=== PATIENT | male | born 1995 | race Caucasian/White ===

== ENCOUNTER 2018-04-10 07:06 | Emergency (ER) | payer SELFPAY ==
[2018-04-10 07:26] VITALS: BP 151/88
[2018-04-10] MEDS ORDERED: Alum Hydrox/Mag Hydrox/Simeth 15 ML, Lidocaine 2% 15 ML PO ONE ×2 (07:37)
--- NOTE | 2018-04-10 08:17 | EDM.PDOC ---
ED HPI GENERAL MEDICAL PROBLEM - General Chief Complaint: ENT Problem Stated Complaint: SORE THORAT AND HEADACHE Time Seen by Provider: 04/10/18 07:30 Source of Information: Reports: Patient History Limitations: Reports: No Limitations - History of Present Illness INITIAL COMMENTS - FREE TEXT/NARRATIVE: 23-year-old male with a sore throat, earaches and cough for the past 48 hours. He is unsure if he's been running fevers. Developing a cough. Duration: Day(s): (2 days) Worsens with: Reports: Other (Swallowing is very painful) Associated Symptoms: Reports: Cough, Fever/Chills, Malaise. Denies: Shortness of Breath - Related Data Allergies Allergy/AdvReac Type Severity Reaction Status Date / Time No Known Allergies Allergy Verified 04/10/18 07:24 Home Meds: Home Meds NK [No Known Home Meds] 08/02/16 [History] Past Medical History Musculoskeletal History: Reports: Fracture Dermatologic History: Reports: Other (See Below) Other Dermatologic History: dry skin - Infectious Disease History Infectious Disease History: Reports: Chicken Pox - Past Surgical History HEENT Surgical History: Reports: Other (See Below) Other HEENT Surgeries/Procedures: had lump removed on throat when he was a baby Musculoskeletal Surgical History: Reports: Other (See Below) Other Musculoskeletal Surgeries/Procedures:: severed tendon repair Social & Family History - Tobacco Use Smoking Status *Q: Current Every Day Smoker Years of Tobacco use: 10 Packs/Tins Daily: 1 - Caffeine Use Caffeine Use: Reports: Energy Drinks, Soda - Recreational Drug Use Recreational Drug Use: Yes Recreational Drug Type: Reports: Marijuana/Hashish Recreational Drug Use Frequency: Socially ED ROS ENT - Review of Systems Review Of Systems: See Below Constitutional: Reports: Fever, Chills, Malaise HEENT: Reports: Ear Pain, Throat Pain Respiratory: Reports: Cough. Denies: Shortness of Breath GI/Abdominal: Denies: Nausea, Vomiting Skin: Denies: Rash Neurological: Reports: Headache ED EXAM, ENT - Physical Exam Exam: See Below Exam Limited By: No Limitations General Appearance: Alert, No Apparent Distress (Looks uncomfortable but not distressed) Ears: TM Erythema (Slight erythema of the right tympanic membrane, no significant inflammation or bulging) Mouth/Throat: Tonsillar Erythema, Other (Pharyngeal erythema) Head: Atraumatic Neck: No: Lymphadenopathy (R), Lymphadenopathy (L) Respiratory/Chest: Rhonchi (A few perihilar rhonchi are present, especially when coughing) Neurological: Alert, Oriented Skin: Warm, Dry Course - Vital Signs Last Recorded V/S: Last Vital Signs Temp 99.6 F 04/10/18 07:28 Pulse 111 H 04/10/18 07:28 Resp 14 04/10/18 07:28 BP 151/88 H 04/10/18 07:28 Pulse Ox 98 04/10/18 07:28 - Orders/Labs/Meds Orders: Active Orders 24 hr Category Date Time Status STREP SCRN A RAPID W CULT CONF [RM] Routine Lab 04/10/18 07:37 Ordered Meds: Medications Discontinued Medications Generic Name Dose Route Start Last Admin Trade Name Gaurav PRN Reason Stop Dose Admin Al Hydroxide/Mg Hydroxide 15 0 ml 04/10/18 07:37 04/10/18 07:41 ml/ Lidocaine HCl 15 ml PO 04/10/18 07:38 15 ml ONETIME ONE Administration - Re-Assessments/Exams Free Text/Narrative Re-Assessment/Exam: 04/10/18 08:15 Rapid strep was obtained which was positive. He was also given a GI cocktail the numbness tongue and throat which she said didn't do "anything". I told him the strep was positive and we'll place him on an antibiotic and he started asking for something stronger for pain. I told him I would give him a prescription for full dose viscous lidocaine to numb his throat, he said that wasn't and to help he needed something else so I recommended naproxen. He said he is already taking ibuprofen. Narcotics are not indicated for his symptoms, he was given 100 mL of viscous lidocaine and 10 days of amoxicillin 500 3 times a day. Departure - Departure Time of Disposition: 08:30 Disposition: Home, Self-Care 01 Condition: Good Clinical Impression: Strep pharyngitis - Discharge Information Instructions: Strep Throat, [id number] Referrals: PCP,None [Primary Care Provider] - Forms: ED Department Discharge Care Plan Goals: Take antibiotic 3 times a day for at least 7 days, use viscous lidocaine for throat pain as needed. Continue with Tylenol and ibuprofen for additional pain relief. Recheck in 2-3 days if not improving satisfactorily. - My Orders Last 24 Hours: My Active Orders 04/10/18 07:37 STREP SCRN A RAPID W CULT CONF [RM] Routine - Assessment/Plan Last 24 Hours: My Active Orders 04/10/18 07:37 STREP SCRN A RAPID W CULT CONF [RM] Routine
== END 2018-04-10 08:23 | disposition home or self-care (01) ==
LOC: JP.ED 07:06
DX: J02.0 Streptococcal pharyngitis (principal); F17.210 Nicotine dependence, cigarettes, uncomplicated
CPT/HCPCS: 87430; 99283; A9270

== ENCOUNTER 2019-09-07 20:48 | Emergency (ER) | payer SELFPAY ==
[2019-09-07 21:10] VITALS: BP 147/100; PULSE 95
--- NOTE | 2019-09-07 21:27 | EDM.PDOC ---
ED HPI GENERAL MEDICAL PROBLEM - General Chief Complaint: ENT Problem Stated Complaint: TOOTHACHE Time Seen by Provider: 09/07/19 21:22 Source of Information: Reports: Patient, RN Notes Reviewed History Limitations: Reports: No Limitations - History of Present Illness INITIAL COMMENTS - FREE TEXT/NARRATIVE: 24-year-old gentleman presents emergency department today complaint of dental pain, he has a molar in his upper palate that has been causing problems for the last couple of days he is going to try and make an appointment with dentistry no fevers Left Upper Gums Pain Score (Numeric/FACES): 9 - Related Data Allergies Allergy/AdvReac Type Severity Reaction Status Date / Time No Known Allergies Allergy Verified 04/10/18 07:24 Home Meds: Home Meds NK [No Known Home Meds] 08/02/16 [History] Past Medical History Musculoskeletal History: Reports: Fracture Dermatologic History: Reports: Other (See Below) Other Dermatologic History: dry skin - Infectious Disease History Infectious Disease History: Reports: Chicken Pox - Past Surgical History HEENT Surgical History: Reports: Other (See Below) Other HEENT Surgeries/Procedures: had lump removed on throat when he was a baby Musculoskeletal Surgical History: Reports: Other (See Below) Other Musculoskeletal Surgeries/Procedures:: severed tendon repair Social & Family History - Family History Family Medical History: Noncontributory - Tobacco Use Smoking Status *Q: Current Every Day Smoker Years of Tobacco use: 10 Packs/Tins Daily: 1 - Caffeine Use Caffeine Use: Reports: Soda Caffeine Use Comment: daily soda use - Recreational Drug Use Recreational Drug Use: No ED ROS ENT - Review of Systems Review Of Systems: See Below Constitutional: Denies: Fever HEENT: Reports: Dental Pain Respiratory: Reports: No Symptoms Cardiovascular: Reports: No Symptoms ED EXAM, ENT - Physical Exam Exam: See Below Text/Narrative:: Mouth mucosa is moist and pink no exudate or erythema appreciated soft palate tooth #15 is broken with caries tender to the touch tongue is midline uvula is midline Exam Limited By: No Limitations General Appearance: Alert, WD/WN, No Apparent Distress Respiratory/Chest: No Respiratory Distress Course - Vital Signs Last Recorded V/S: Last Vital Signs Temp 98.4 F 09/07/19 21:08 Pulse 95 09/07/19 21:08 Resp 16 09/07/19 21:08 BP 147/100 H 09/07/19 21:08 Pulse Ox 96 09/07/19 21:08 Departure - Departure Time of Disposition: 21:26 Disposition: Home, Self-Care 01 Condition: Fair Clinical Impression: Dental abscess - Discharge Information Instructions: Dental Abscess, [id number] Referrals: PCP,None [Primary Care Provider] - Additional Instructions: Take full course of antibiotics, use ibuprofen for baseline pain control, use hydrocodone for breakthrough pain, please follow-up with dentistry as soon as possible - Assessment/Plan Plan: Assessment Acuity = acute Site and laterality = tooth #15 dental abscess Etiology = poor dentition Manifestations = none Location of injury = Home Lab values = none Plan Letter to treat empirically amoxicillin 500 mg p.o. 3 times daily x10 days with hydrocodone 5/325 1 tab p.o. 3 times daily as needed total #10 follow-up with dentistry as soon as possible This note was dictated using [employer] voice recognition software please call with any questions on syntax or grammar.
== END 2019-09-07 21:28 | disposition home or self-care (01) ==
LOC: JP.ED 20:48
DX: K04.7 Periapical abscess without sinus (principal); K03.81 Cracked tooth; K02.9 Dental caries, unspecified; F17.210 Nicotine dependence, cigarettes, uncomplicated
CPT/HCPCS: 99283

== ENCOUNTER 2019-09-18 00:02 | Emergency (ER) | payer SELFPAY ==
[2019-09-18 01:16] VITALS: BP 148/92; PULSE 93
[2019-09-18] MEDS ORDERED: oxyCODONE 5 MG Tab PO ONE (02:16)
--- NOTE | 2019-09-18 02:23 | EDM.PDOC ---
ED HPI GENERAL MEDICAL PROBLEM - General Chief Complaint: ENT Problem Stated Complaint: TOOTHACHE Time Seen by Provider: 09/18/19 02:00 Source of Information: Reports: Patient History Limitations: Reports: No Limitations - History of Present Illness INITIAL COMMENTS - FREE TEXT/NARRATIVE: 24-year-old male with history of ongoing dental pain presents with concerns of dental pain. He was first seen here in August, started on antibiotics, reports that he followed up with a dentist last week and needs to see an oral surgeon. He continues to have ongoing pain around the left upper molar. He was prescribed oxycodone by the dentist for this earlier this week. He has no fevers or chills, no increased swelling or drainage. He is able open his mouth and chew without difficulty. He is in the ED tonight for pain control. Oral/Mouth Pain Score (Numeric/FACES): 8 - Related Data Allergies Allergy/AdvReac Type Severity Reaction Status Date / Time No Known Allergies Allergy Verified 04/10/18 07:24 Home Meds: Home Meds Azithromycin 250 mg PO DAILY 09/18/19 [History] oxyCODONE 5 mg PO Q4H PRN #5 tab 09/18/19 [Rx] oxyCODONE HCl/Acetaminophen [Oxycodon-Acetaminophen 2.5-325] 1 tab PO DAILY 06/29 [History] Past Medical History Musculoskeletal History: Reports: Fracture Dermatologic History: Reports: Other (See Below) Other Dermatologic History: dry skin - Infectious Disease History Infectious Disease History: Reports: Chicken Pox - Past Surgical History HEENT Surgical History: Reports: Other (See Below) Other HEENT Surgeries/Procedures: had lump removed on throat when he was a baby Musculoskeletal Surgical History: Reports: Other (See Below) Other Musculoskeletal Surgeries/Procedures:: severed tendon repair Social & Family History - Family History Family Medical History: Noncontributory - Tobacco Use Smoking Status *Q: Current Every Day Smoker Years of Tobacco use: 12 Packs/Tins Daily: 1 - Caffeine Use Caffeine Use: Reports: Energy Drinks, Soda Caffeine Use Comment: daily - Alcohol Use Days Per Week of Alcohol Use: 1 Number of Drinks Per Day: 3 Total Drinks Per Week: 3 - Recreational Drug Use Recreational Drug Use: No ED ROS ENT - Review of Systems Review Of Systems: See Below Constitutional: Reports: No Symptoms HEENT: Reports: Other (tooth pain) Respiratory: Reports: No Symptoms Cardiovascular: Reports: No Symptoms Endocrine: Reports: No Symptoms GI/Abdominal: Reports: No Symptoms : Reports: No Symptoms Musculoskeletal: Reports: No Symptoms Skin: Reports: No Symptoms Neurological: Reports: No Symptoms Psychiatric: Reports: No Symptoms Hematologic/Lymphatic: Reports: No Symptoms Immunologic: Reports: No Symptoms ED EXAM, ENT - Physical Exam Exam: See Below Exam Limited By: No Limitations General Appearance: Alert, No Apparent Distress Ears: Normal External Exam Nose: Normal Inspection Mouth/Throat: Other (fractured left upper molar, no surrounding erythema or swelling) Head: Atraumatic, Normocephalic Neck: Normal Inspection Respiratory/Chest: No Respiratory Distress Cardiovascular: Regular Rate, Rhythm GI/Abdominal: Non-Tender, No Distention Back: Normal Inspection Extremities: Normal Inspection Neurological: Alert, Oriented Psychiatric: Normal Affect, Normal Mood Skin: Warm, Dry Course - Vital Signs Last Recorded V/S: Last Vital Signs Temp 37.2 C 09/18/19 01:11 Pulse 93 09/18/19 01:11 Resp 16 09/18/19 01:11 BP 148/92 H 09/18/19 01:11 Pulse Ox 95 09/18/19 01:11 - Orders/Labs/Meds Meds: Medications Discontinued Medications Generic Name Dose Route Start Last Admin Trade Name Gaurav PRN Reason Stop Dose Admin Oxycodone HCl 5 mg 09/18/19 02:16 Oxycodone PO 09/18/19 02:17 ONETIME ONE - Re-Assessments/Exams Free Text/Narrative Re-Assessment/Exam: 24-year-old presents to concerns of dental pain. Has had ongoing issues at the site of a fractured left upper molar. On exam, no evidence of worsening infection. He is actually just finishing 10 days of antibiotics. He is asking for better pain control. We're administering a single oxycodone and I have written him for #5, 5 mg pills until dental follow-up. 09/18/19 02:21 Departure - Departure Time of Disposition: 02:22 Disposition: Home, Self-Care 01 Clinical Impression: Pain, dental - Discharge Information Prescriptions: oxyCODONE 5 mg PO Q4H PRN #5 tab PRN Reason: Pain Referrals: PCP,None [Primary Care Provider] - Additional Instructions: It is very important that you continue to follow up with your dentist Take scheduled Tylenol and ibuprofen then use the prescribed pain medication in addition to this as needed
== END 2019-09-18 02:25 | disposition home or self-care (01) ==
LOC: JP.ED 00:02
DX: K08.89 Other specified disorders of teeth and supporting structures (principal); K03.81 Cracked tooth; F17.210 Nicotine dependence, cigarettes, uncomplicated
CPT/HCPCS: 99283; A9270

== ENCOUNTER 2019-09-24 00:44 | Emergency (ER) | payer SELFPAY ==
[2019-09-24] MEDS ORDERED: Acetaminophen/oxyCODONE 325-5 MG Tab PO ONE (01:17)
[2019-09-24] MEDS ORDERED: Ketorolac 60 MG/2 ML SDV IM ONE (01:17)
--- NOTE | 2019-09-24 01:24 | EDM.PDOC ---
ED HPI GENERAL MEDICAL PROBLEM - General Chief Complaint: General Stated Complaint: TOOTH ACHE,UPPER LEFT JAW Time Seen by Provider: 09/24/19 01:18 Source of Information: Reports: Patient History Limitations: Reports: No Limitations - History of Present Illness INITIAL COMMENTS - FREE TEXT/NARRATIVE: pt arrived with pain the rt lower molar area from a abcess on the back molar. He has a broken tooth on the left lower most post molar. He has seen Dr Ochoa and she has refered him to oral surgery. He has not been able to see the oral surgeon because his insurance has not gone through. Onset: Gradual, Other ( This has been going on since the end of Aug, ) Duration: Hour(s): Location: Reports: Face Associated Symptoms: Reports: No Other Symptoms Left Upper Jaw Pain Score (Numeric/FACES): 10 - Related Data Allergies Allergy/AdvReac Type Severity Reaction Status Date / Time No Known Allergies Allergy Verified 09/24/19 00:53 Past Medical History Cardiovascular History: Reports: Heart Murmur Musculoskeletal History: Reports: Fracture Psychiatric History: Reports: Panic Attack Dermatologic History: Reports: Other (See Below) Other Dermatologic History: dry skin - Infectious Disease History Infectious Disease History: Reports: Chicken Pox - Past Surgical History HEENT Surgical History: Reports: Other (See Below) Other HEENT Surgeries/Procedures: had lump removed on throat when he was a baby Musculoskeletal Surgical History: Reports: Other (See Below) Other Musculoskeletal Surgeries/Procedures:: severed tendon repair Social & Family History - Family History Family Medical History: Noncontributory - Tobacco Use Smoking Status *Q: Current Every Day Smoker Years of Tobacco use: 12 Packs/Tins Daily: 0.5 - Caffeine Use Caffeine Use: Reports: Soda Caffeine Use Comment: daily - Recreational Drug Use Recreational Drug Use: No ED ROS GENERAL - Review of Systems Review Of Systems: See Below Constitutional: Reports: No Symptoms HEENT: Reports: Dental Pain Respiratory: Reports: No Symptoms Cardiovascular: Reports: No Symptoms Endocrine: Reports: No Symptoms GI/Abdominal: Reports: No Symptoms : Reports: No Symptoms Musculoskeletal: Reports: No Symptoms Skin: Reports: No Symptoms ED EXAM, GENERAL - Physical Exam Exam: See Below Free Text/Narrative:: pt arrived appearing very uncomfortable. He has been off of antibiotics. He is waiting for his insurance to go through so he can see oral surgery and have extractions. Exam Limited By: No Limitations General Appearance: Alert, Anxious, Severe Distress Ears: Normal TMs Nose: Normal Inspection Throat/Mouth: Other (pt has a abcess on the most post molar on the rt and he has a cracked tooth the most post molar on the left. He also needs to have his wisdom teeth removed. ) Head: Atraumatic Neck: Normal Inspection Course - Vital Signs Last Recorded V/S: Last Vital Signs Temp 35.6 C 09/24/19 01:01 Pulse 81 09/24/19 01:01 Resp 22 H 09/24/19 01:01 BP 179/111 H 09/24/19 01:01 Pulse Ox 98 09/24/19 01:01 - Orders/Labs/Meds Meds: Medications Discontinued Medications Generic Name Dose Route Start Last Admin Trade Name Freq PRN Reason Stop Dose Admin Ketorolac Tromethamine 60 mg 09/24/19 01:17 09/24/19 01:23 Toradol IM 09/24/19 01:18 60 mg ONETIME ONE Administration Oxycodone/Acetaminophen 1 tab 09/24/19 01:17 09/24/19 01:23 Percocet 325-5 Mg PO 09/24/19 01:18 1 tab ONETIME ONE Administration - Re-Assessments/Exams Free Text/Narrative Re-Assessment/Exam: 09/24/19 01:23 pt was given torodol 60mg im and percocet 5/325 . Departure - Departure Time of Disposition: 01:23 Disposition: Home, Self-Care 01 Condition: Fair Clinical Impression: Dental abscess - Discharge Information Instructions: Dental Abscess Referrals: PCP,None [Primary Care Provider] - Forms: ED Department Discharge Care Plan Goals: check on insurance early wednesday. . call oral surgery if insurance is estasblished. If he does not get in right away pt should go to [facility] office so she can help him. amoxicillin 500mg tid, torodol 10 mg q6h for pain, for severe pain percocet 5/325 q6h prn #8 Sepsis Event Note - Evaluation Sepsis Screening Result: Possible Sepsis Risk - Focused Exam Date Exam was Performed: 09/26/19 Time Exam was Performed: 07:20
[2019-09-24 02:34] VITALS: BP 179/111; PULSE 81
== END 2019-09-24 01:36 | disposition home or self-care (01) ==
LOC: JP.ED 00:44
DX: K04.7 Periapical abscess without sinus (principal); K03.81 Cracked tooth; F17.210 Nicotine dependence, cigarettes, uncomplicated
CPT/HCPCS: 96372; 99283; A9270; J1885

== ENCOUNTER 2020-07-04 23:08 | Emergency (ER) | payer MEDICAID, OTHER ==
[2020-07-04 23:29] VITALS: BP 156/101; PULSE 81
--- NOTE | 2020-07-05 00:35 | EDM.PDOC ---
ED HPI GENERAL MEDICAL PROBLEM - General Chief Complaint: ENT Problem Stated Complaint: TOOTH PAIN Time Seen by Provider: 07/05/20 00:24 Source of Information: Reports: Patient History Limitations: Reports: No Limitations - Related Data Allergies Allergy/AdvReac Type Severity Reaction Status Date / Time No Known Allergies Allergy Verified 09/24/19 00:53 Home Meds: Home Meds NK [No Known Home Meds] 07/04/20 [History] Past Medical History Cardiovascular History: Reports: Heart Murmur Musculoskeletal History: Reports: Fracture Psychiatric History: Reports: Panic Attack Dermatologic History: Reports: Other (See Below) Other Dermatologic History: dry skin - Infectious Disease History Infectious Disease History: Reports: Chicken Pox - Past Surgical History HEENT Surgical History: Reports: Other (See Below) Other HEENT Surgeries/Procedures: had lump removed on throat when he was a baby Musculoskeletal Surgical History: Reports: Other (See Below) Other Musculoskeletal Surgeries/Procedures:: severed tendon repair Social & Family History - Family History Family Medical History: Noncontributory - Caffeine Use Caffeine Use: Reports: Coffee, Soda Caffeine Use Comment: daily - Recreational Drug Use Recreational Drug Use: No ED ROS ENT - Review of Systems Review Of Systems: See Below Constitutional: Reports: No Symptoms HEENT: Reports: Dental Pain, Other ( facial swelling. ) Respiratory: Reports: No Symptoms Cardiovascular: Reports: No Symptoms Endocrine: Reports: No Symptoms GI/Abdominal: Reports: No Symptoms : Reports: No Symptoms ED EXAM, ENT - Physical Exam Exam: See Below Text/Narrative:: pt has multiple carrious molars thar have been flairing. Exam Limited By: No Limitations General Appearance: Alert, Anxious Ears: Normal TMs Nose: Normal Inspection Mouth/Throat: Dental Pain, Dental Tenderness, Other (pt has swelling on the rt side of his face. He has multiple carrious teeth. ) Head: Atraumatic Neck: Normal Inspection Respiratory/Chest: No Respiratory Distress Course - Vital Signs Last Recorded V/S: Last Vital Signs Temp 35.8 C L 07/04/20 23:34 Pulse 81 07/04/20 23:34 Resp 16 07/04/20 23:34 BP 156/101 H 07/04/20 23:34 Pulse Ox 98 07/04/20 23:34 Departure - Departure Time of Disposition: 00:24 Disposition: Home, Self-Care 01 Condition: Fair Clinical Impression: Infected tooth - Discharge Information Referrals: PCP,None [Primary Care Provider] - Care Plan Goals: appt at [facility] for Wednesday. Stop amoxicillin switch to clindomycin 300mg tid. While onn the antibiotic eat alot of yogutrt. and use probiotic tramodol 50 mg q6h prn for pain/ Sepsis Event Note (ED) - Evaluation Sepsis Screening Result: No Definite Risk - Focused Exam Vital Signs: Vital Signs Temp Pulse Resp BP Pulse Ox 07/04/20 23:34 35.8 C L 81 16 156/101 H 98 07/04/20 23:27 35.8 C L 81 16 156/101 H 98
== END 2020-07-05 00:54 | disposition home or self-care (01) ==
LOC: JP.ED 23:08
DX: K04.7 Periapical abscess without sinus (principal); K02.9 Dental caries, unspecified
CPT/HCPCS: 99282; 99283

== ENCOUNTER 2022-09-24 09:04 | Emergency (ER) | payer MEDICAID ==
[2022-09-24 09:23] VITALS: BP 137/83; PULSE 74
[2022-09-24] MEDS ORDERED: Sodium Chloride 0.9% 10 ML Syringe FLUSH PRN (09:41)
[2022-09-24] MEDS ORDERED: Ondansetron 4 MG/2 ML SDV IVPUSH ONE (09:41)
[2022-09-24] MEDS ORDERED: Ketorolac 30 MG/ML SDV IVPUSH ONE (09:41)
[2022-09-24] MEDS ORDERED: Lactated Ringers 1,000 ML IV ONE (09:41)
[2022-09-24 10:15] LABS: ESTIMATED GFR 70 mL/min (>60)
[2022-09-24] MEDS ORDERED: Sodium Chloride 0.9% 10 ML Syringe FLUSH ONE (10:49)
[2022-09-24] MEDS ORDERED: Iopamidol 612 MG/ML 100 ML Bottle IV ONE (10:49)
[2022-09-24] MEDS ORDERED: Sodium Chloride 0.9% 50 ML IV ONE (10:49)
[2022-09-24 10:52] LABS: CORONAVIRUS COVID-19 NAA NEGATIVE (NEGATIVE)
[2022-09-24] MEDS ORDERED: Ertapenem 1 GM in Sodium Chloride 0.9% 50 ML IV ONE (11:36)
[2022-09-24] MEDS ORDERED: Lactated Ringers 1,000 ML IV SCH (11:45)
[2022-09-24] MEDS ORDERED: Meropenem 1 GM in Sodium Chloride 0.9% 100 ML IV SCH (12:00)
== END 2022-09-24 13:00 ==
LOC: JP.ED 09:04
DX: K56.7 Ileus, unspecified (principal); E86.0 Dehydration; F17.210 Nicotine dependence, cigarettes, uncomplicated; Z20.822 Contact with and (suspected) exposure to COVID-19
CPT/HCPCS: 0241U; 36415; 74177; 80053; 83605; 83690; 85025; 86140; 96361; 96365; 96375; 99284; J1885; J2185; J2405; J3490; J7120; Q9967

== ENCOUNTER 2022-09-25 07:17 | Emergency (ER) | payer MEDICAID ==
[2022-09-25 07:42] VITALS: BP 130/80; PULSE 91
== END 2022-09-25 08:14 | disposition home or self-care (01) ==
LOC: JP.ED 07:17
DX: R10.84 Generalized abdominal pain (principal); F17.210 Nicotine dependence, cigarettes, uncomplicated
CPT/HCPCS: 99283

== ENCOUNTER 2023-10-27 06:22 | Emergency (ER) | payer MEDICAID ==
[2023-10-27 06:49] VITALS: BP 128/77; PULSE 80
== END 2023-10-27 07:52 | disposition home or self-care (01) ==
LOC: JP.ED 06:22
DX: K05.10 Chronic gingivitis, plaque induced (principal); F17.210 Nicotine dependence, cigarettes, uncomplicated
CPT/HCPCS: 99282; 99283

== ENCOUNTER 2024-10-30 12:55 | Emergency (ER) | payer SELFPAY ==
[2024-10-30] MEDS: Cyclobenzaprine 10 MG Tab PO ONE (14:02)
[2024-10-30] MEDS: Ketorolac 30 MG/ML SDV IM ONE (14:15)
[2024-10-30 14:21] LABS: HEMATOCRIT 43.4 % (38.4-49.7); HEMOGLOBIN 15.2 g/dL (12.9-16.9); MEAN CORPUSCULAR HEMOGLOBIN 31.7 pg (31.6-35.5); MEAN CORPUSCULAR VOLUME 90.6 fL (81.4-99.0); RED BLOOD CELL COUNT 4.79 M/uL (4.14-5.76); WHITE BLOOD CELL COUNT,WBC 9.1 K/uL (3.2-11.0)
[2024-10-30 14:39] LABS: APPEARANCE,URINE CLEAR (CLEAR); BILIRUBIN,URINE NEGATIVE (NEGATIVE); COLOR,URINE YELLOW (YELLOW); GLUCOSE,URINE NEGATIVE (NEGATIVE); KETONES,URINE NEGATIVE (NEGATIVE); LEUKOCYTE ESTERASE,URINE NEGATIVE (NEGATIVE); NITRITE,URINE NEGATIVE (NEGATIVE); OCCULT BLOOD,URINE NEGATIVE (NEGATIVE); PH,URINE 5.5 (5.0-8.0); PROTEIN,URINE NEGATIVE (NEGATIVE); UROBILINOGEN,URINE 0.2 EU/dL (0.2-1.0)
[2024-10-30 14:43] VITALS: BP 124/78; PULSE 88
[2024-10-30 14:49] LABS: RBC,URINE 0-5 (0-5); WBC,URINE 0-5 (0-5)
[2024-10-30 14:50] LABS: AMORPHOUS SEDIMENT,URINE NOT SEEN; BACTERIA,URINE RARE; EPITHELIAL CELLS,URINE RARE; MUCUS,URINE RARE
[2024-10-30] MEDS: Ibuprofen 400 MG Tab PO ONE (14:50)
== END 2024-10-30 14:30 | disposition home or self-care (01) ==
LOC: JP.ED 12:55
DX: M54.42 Lumbago with sciatica, left side (principal); F17.210 Nicotine dependence, cigarettes, uncomplicated
CPT/HCPCS: 36415; 72100; 81001; 85027; 85651; 86140; 99283; A9270

== ENCOUNTER 2024-11-12 09:04 | Emergency (ER) | payer SELFPAY ==
[2024-11-12 09:39] VITALS: BP 110/61; PULSE 83
[2024-11-12] MEDS: Ketorolac 30 MG/ML SDV IM ONE (10:16)
== END 2024-11-12 10:43 | disposition home or self-care (01) ==
LOC: JP.ED 09:04
DX: S82.891A Other fracture of right lower leg, initial encounter for closed fracture (principal); I10 Essential (primary) hypertension; F17.210 Nicotine dependence, cigarettes, uncomplicated; W00.0XXA Fall on same level due to ice and snow, initial encounter; Y93.01 Activity, walking, marching and hiking
CPT/HCPCS: 73610-RT; 73630-RT; 99283

== ENCOUNTER 2025-04-11 14:20 | Emergency (ER) | payer SELFPAY ==
[2025-04-11 14:50] VITALS: BP 135/84; PULSE 83
[2025-04-11] MEDS ORDERED: Diphtheria,Pertussis(Acell),Tetanus Vaccine 0.5 ML Syringe IM ONE (15:00)
[2025-04-11] MEDS ORDERED: Bacitracin Oint 1 GM U/D Packet TOP ONE (16:06)
== END 2025-04-11 16:15 | disposition home or self-care (01) ==
LOC: JP.ED 14:20
DX: S61.231A Puncture wound without foreign body of left index finger without damage to nail, initial encounter (principal); S60.212A Contusion of left wrist, initial encounter; I10 Essential (primary) hypertension; W29.4XXA Contact with nail gun, initial encounter
CPT/HCPCS: 73100-26-LT; 73100-LT; 99283